=== PATIENT | female | born 1950 | race Caucasian/White ===

== ENCOUNTER 2021-11-13 16:04 | Outpatient (CLI) | payer MEDICARE, OTHER ==
[2021-11-13 16:27] LABS: BASOPHILS # (AUTO) 0.1 10^3/uL (0.0-0.1); BASOPHILS % (AUTO) 0.9 %; EOSINOPHILS # (AUTO) 0.5 10^3/uL (0.0-0.7); HCT - HEMATOCRIT 38.2 % (37.0-47.0); HGB - HEMOGLOBIN 12.4 g/dL (12.0-16.0); LYMPHOCYTES # (AUTO) 2.3 10^3/uL (1.5-3.5); LYMPHOCYTES % (AUTO) 22.6 %; MEAN CORPUSCULAR HEMOGLOBIN 27.6 pg (27.0-31.0); MEAN CORPUSCULAR HGB CONC 32.5 g/dL (32.0-36.0); MEAN CORPUSCULAR VOLUME 85.1 fL (81.0-99.0); MEAN PLATELET VOLUME 10.4 fL (7.9-10.8); MONOCYTES # (AUTO) 1.2 10^3/uL (0.0-1.0); MONOCYTES % (AUTO) 11.9 %; NEUTROPHILS % (AUTO) 59.2 %; PLT - PLATELET COUNT 328 10^3/uL (130-450); RED BLOOD COUNT 4.49 10^6/uL (4.20-5.40); RED CELL DISTRIBUTION WIDTH 15.4 % (12.0-15.0); WHITE BLOOD COUNT 10.1 x10^3/uL (4.8-10.8)
== END 2021-11-13 16:05 | disposition home or self-care (01) ==
LOC: LAB 16:04
PROVIDERS: ATTEND Internal Medicine Infectious Disease
DX: Z87.39 Personal history of other diseases of the musculoskeletal system and connective tissue (principal)
CPT/HCPCS: 36415; 85025; 87040

== ENCOUNTER 2022-05-10 08:00 | Outpatient (CLI) | payer MEDICARE, OTHER | END 2022-05-10 23:59 | disposition home or self-care (01) | LOC: LAB.N 08:00 | DX: S81.802A Unspecified open wound, left lower leg, initial encounter (principal) | CPT/HCPCS: 87070; 87077; 87181; 87205 ==

== ENCOUNTER 2023-01-11 07:30 | Outpatient (CLI) | payer MEDICARE, MEDICAID ==
--- NOTE | 2023-01-11 15:57 | XRAY Report ---
PROCEDURE: Foot 3 View LT INDICATIONS: WOUND INFECTION TECHNIQUE: 3 views of the foot were acquired. COMPARISON: None. FINDINGS: Bones: There is dislocation at the second, third and fourth PIP joints. There is no discretely visua lized fracture. Diffuse IP degenerative narrowing is present. Midfoot arthritic changes are present. No suspicious bony lesions. Calcaneal spur is present. Soft tissues: No suspicious soft tissue calcifications or masses. Plantar soft tissue wound is pre sent. IMPRESSION: Arthritic changes as well as dislocations appearing chronic. Plantar soft tissue wound. No associated osseous abnormality. Reviewed by: Debbie Bustamante MD on 01/11/2023 3:56 PM PDT Approved by: Debbie Bustamante MD on 01/11/2023 3:56 PM PDT Station ID: [id number]
== END 2023-01-11 07:45 | disposition home or self-care (01) ==
LOC: DI.N 07:30
PROVIDERS: ATTEND Specialist
DX: L08.9 Local infection of the skin and subcutaneous tissue, unspecified (principal); M19.072 Primary osteoarthritis, left ankle and foot; M24.875 Other specific joint derangements left foot, not elsewhere classified
CPT/HCPCS: 87070; 87205

== ENCOUNTER 2023-01-11 07:45 | Outpatient (CLI) | payer MEDICARE | END 2023-01-11 08:00 | disposition home or self-care (01) | LOC: LAB.N 07:45 | PROVIDERS: ATTEND Specialist | DX: L08.9 Local infection of the skin and subcutaneous tissue, unspecified (principal) | CPT/HCPCS: 87070; 87205 ==

== ENCOUNTER 2023-06-23 13:02 | Emergency (ER) | payer MEDICARE, OTHER ==
[2023-06-23] MEDS ORDERED: SODIUM CHLORIDE 0.9% 1,000 ML IV STA (13:27)
[2023-06-23] MEDS ORDERED: HYDROmorphone 1 MG/ML CARPUJECT IVP STA (13:27)
--- NOTE | 2023-06-23 13:39 | ED Physician Documentation ---
PD HPI BACK PAIN - Stated complaint Stated Complaint: LOWER BACK PX - Chief complaint Chief Complaint: Back Pain - History obtained from History obtained from: Patient - Additional information Additional information: 72-year-old woman with history of rheumatoid arthritis and gout presents to the evaluation of low back pain. 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 She feels shaky and weak. She has urinary frequency without dysuria or incontinence. No fevers but has had chills. PD PAST MEDICAL HISTORY - Past Medical History Past Medical History: Yes - Past Surgical History Past Surgical History: No - Present Medications Home Medications: Ambulatory Orders Medication Instructions Recorded Confirmed EPINEPHrine [Epinephrine] 0.3 mg IJ ONCE PRN #1 dis.syr 02/08/22 06/23/23 Abatacept [Orencia Clickject] 125 mg SQ .Q7DAY 06/23/23 06/23/23 Calcium Carbonate/Vitamin D3 1 each PO DAILY 06/23/23 06/23/23 [Calcium 600 mg-D3 20 Mcg Cplt] Cholecalciferol [Vitamin D3] 1 tab PO DAILY 06/23/23 06/23/23 Gabapentin [Neurontin] 200 mg PO TID 06/23/23 06/23/23 Hydroxychloroquine [Plaquenil] 200 mg PO BID 06/23/23 06/23/23 Leflunomide [Arava] 20 mg PO DAILY 06/23/23 06/23/23 Metoprolol Succinate [Kapspargo 25 mg PO BID 06/23/23 06/23/23 Sprinkle] Oxycodone HCl/Acetaminophen 1 - 2 each PO Q6H PRN #14 tablet 06/23/23 [Percocet 5-325 mg Tablet] Prednisone [Deb] 10 mg PO DAILY 06/23/23 06/23/23 allopurinoL [Zyloprim] 100 mg PO DAILY 06/23/23 06/23/23 amLODIPine [Norvasc] 5 mg PO DAILY 06/23/23 06/23/23 - Allergies Allergies/Adverse Reactions: Allergies Allergy/AdvReac Type Severity Reaction Status Date / Time lisinopril Allergy Anaphylaxis Verified 06/23/23 13:05 - Social History Does the pt smoke?: No Smoking Status: Never smoker Does the pt drink ETOH?: No Does the pt have substance abuse?: No - Immunizations Immunizations are current?: Yes - POLST Patient has POLST: No PD ED PE NORMAL - Vitals Vital signs reviewed: Yes - General General: Alert and oriented X 3, No acute distress - Abdomen Abdomen: Soft, Non tender - Back Back: Other (Tender to the lower lumbar spine without skin changes or signs of shingles.) - Extremities Extremities: Other (She has a right BKA, sensation throughout the lower extremities is intact and she has normal strength in the left lower extremity.) - Neuro Neuro: Alert and oriented X 3, Normal speech Results - Vitals Vitals: Vital Signs - 24 hr 06/23/23 06/23/23 13:05 16:24 Temperature 36.5 C Heart Rate 117 H 101 H Respiratory 16 16 Rate Blood Pressure 167/81 H 151/80 H O2 Saturation 98 97 Oxygen O2 Source Room air - Labs Labs: Laboratory Tests 06/23/23 06/23/23 06/23/23 13:41 13:41 13:41 WBC 12.4 H RBC 5.11 Hgb 12.7 Hct 41.8 MCV 81.8 MCH 24.9 L MCHC 30.4 L RDW 16.7 H Plt Count 403 MPV 9.8 Neut # (Auto) 9.5 H Lymph # (Auto) 1.7 Coles # (Auto) 0.8 Eos # (Auto) 0.2 Baso # (Auto) 0.1 Absolute Nucleated RBC 0.00 Nucleated RBC % 0.0 Sodium 141 Potassium 3.3 L Chloride 105 Carbon Dioxide 26 Anion Gap 10.0 BUN 10 Creatinine 0.6 Estimated GFR (MDRD) 98 Glucose 121 H Lactic Acid 1.6 Calcium 9.8 Total Bilirubin 0.3 AST 11 ALT 7 L Alkaline Phosphatase 95 Total Protein 6.2 L Albumin 3.9 Globulin 2.3 Albumin/Globulin Ratio 1.7 PD Medical Decision Making - ED course ED course: 72-year-old woman with rheumatoid arthritis presents with about 4 days of low back pain. No clear infectious symptoms and no abnormalities on neurologic exam. Nothing in the history or physical to suggest cauda equina. She did have a white count of 12.4 and given her immunocompromise status I initially wanted to get an MRI of her lumbar spine. Unfortunately given that today is this was not available. A CT of the lumbar spine was done with and without contrast showing significant areas of degenerative disease and anterolisthesis and spinal stenosis associated with a disc herniation. She was feeling modestly better after medications. I discussed with her that infection is not completely ruled out and discussed options for MRI including transfer, admission, or returning tomorrow and she plans to return tomorrow if she is not feeling much better. Advised to return sooner if she develops worsening symptoms or fever. Departure - Departure Disposition: 01 Home, Self Care Clinical Impression: Sciatica Condition: Good Record reviewed to determine appropriate education?: Yes Instructions: ED Sciatica Prescriptions: Oxycodone HCl/Acetaminophen [Percocet 5-325 mg Tablet] 1 - 2 each PO Q6H PRN #14 tablet PRN Reason: pain Comments: I sent your prescription electronically to [facility] in [place]. As discussed there is no clear indication of anything infectious on the CT and there are multiple abnormal areas on the CT that would cause pain. If you were to run a fever or worsen or develop weakness in the legs or numbness around your groin please return immediately for reevaluation. I am prescribing a short course of narcotic pain medication for you. These are potentially dangerous and addictive medications that should be used carefully. These medications may constipate you. Take an wxfy-elh-uogzjry stool softener (docusate) twice daily with plenty of water while taking these medications. If you go 24 hours without a bowel movement, take wxcx-pkv-zgjrbry miralax, per package instructions. Do not drink or drive while taking these medications. If you received narcotic or sedating medications while in the emergency department, do not drive for 24 hours. Store this medication in a safe, secure place and out of reach of children. It is a violation of federal law to give or sell this medication to another person or to use in a manner other than prescribed. The ED will not refill narcotic prescriptions, including prescriptions lost or stolen. To dispose of unwanted medications: 1. [facility] provides a drop box for medication in pill form only (no liquids) 8:00 am to 4:30 p.m. Tuesday-Tuesday in the lobby of the [facility], [address] Empty pills into ziplock bag before disposal. Call [phone] for information. 2.[employer] is a free service available to all [facility] residents. Go to [email or web address] Note that many narcotic pain relievers also contain Tylenol/acetaminophen. Please ensure that your total dose of acetaminophen from all sources does not exceed 3 g (3000 mg) per day. Discharge Date/Time: 06/23/23 16:26
[2023-06-23 13:47] LABS: BASOPHILS # (AUTO) 0.1 10^3/uL (0.0-0.1); BASOPHILS % (AUTO) 0.9 %; EOSINOPHILS # (AUTO) 0.2 10^3/uL (0.0-0.7); EOSINOPHILS % (AUTO) 1.9 %; HCT - HEMATOCRIT 41.8 % (37.0-47.0); HGB - HEMOGLOBIN 12.7 g/dL (12.0-16.0); LYMPHOCYTES # (AUTO) 1.7 10^3/uL (1.5-3.5); LYMPHOCYTES % (AUTO) 13.7 %; MEAN CORPUSCULAR HEMOGLOBIN 24.9 pg (27.0-31.0); MEAN CORPUSCULAR HGB CONC 30.4 g/dL (32.0-36.0); MEAN CORPUSCULAR VOLUME 81.8 fL (81.0-99.0); MEAN PLATELET VOLUME 9.8 fL (7.9-10.8); MONOCYTES # (AUTO) 0.8 10^3/uL (0.0-1.0); MONOCYTES % (AUTO) 6.7 %; NEUTROPHILS # (AUTO) 9.5 10^3/uL (1.5-6.6); NEUTROPHILS % (AUTO) 76.6 %; PLT - PLATELET COUNT 403 10^3/uL (130-450); RED BLOOD COUNT 5.11 10^6/uL (4.20-5.40); RED CELL DISTRIBUTION WIDTH 16.7 % (12.0-15.0); WHITE BLOOD COUNT 12.4 x10^3/uL (4.8-10.8)
[2023-06-23 14:00] LABS: ALBUMIN 3.9 g/dL (3.2-5.5)
[2023-06-23 14:17] LABS: ALBUMIN/GLOBULIN RATIO 1.7 (1.0-2.2); BILIRUBIN,TOTAL 0.3 mg/dL (0.2-1.0); CALCIUM 9.8 mg/dL (8.5-10.3); CREATININE 0.6 mg/dL (0.6-1.3); POTASSIUM 3.3 mmol/L (3.5-4.5); TOTAL PROTEIN 6.2 g/dL (6.4-8.9)
[2023-06-23] MEDS ORDERED: iohexoL-300 100 ML VIAL IVP ONE (15:18)
[2023-06-23] MEDS ORDERED: KETOROLAC 15 MG/ML VIAL IVP STA (15:24)
--- NOTE | 2023-06-23 15:46 | CT Report ---
PROCEDURE: LUMBAR SPINE W/WO INDICATIONS: back pain TECHNIQUE: Axial images were obtained both before and following administration of 100 cc Omnipaque 30 0. Coronal and sagittal images are reformatted. COMPARISON: None. FINDINGS: No acute fractures can be seen. Generalized degenerative changes are seen, with moderate severe disc space narrowing at L2-L3 and L4- L5, with moderate disc space narrowing at L3-L4 and at L5-S1. At L2-L3, there is grade 1 anterolisthesis seen, without associated pars defects. Calcification and v acuum phenomenon can be seen posterior to the L2 disc. There is at least moderate right-sided and mil d left-sided neuroforaminal narrowing at L2-L3. There is moderate to severe central canal narrowing a t L2-L3. At L3-L4, there is a prominent disc extrusion seen within the central/right location, with superior m igration of disc material, as on series 5 image 61. There is moderate to severe central canal narrowi ng seen at this level. Moderate to severe bilateral neuroforaminal narrowing can be seen at this leve l. At L4-L5, there is moderate generalized disc bulge, with a central disc osteophyte protrusion. Modera te facet hypertrophy is seen at this level, with at least moderate bilateral neuroforaminal narrowing , left worse than right. Moderate to severe central canal narrowing is seen. L5-S1, there is at least moderate disc bulge seen. At least moderate bilateral neuroforaminal narrowi ng is seen. Mild central canal narrowing is seen. Within the surrounding soft tissues, there is prominent atherosclerotic change seen. Simple appearing nonenhancing cysts can be seen at the inferior pole of the left kidney. Diverticulosis can be seen, without duke findings of active diverticulitis. IMPRESSION: Multiple levels of significant lumbar spine degenerative change can be seen, including an L3-L4 disc extrusion, with moderate to severe central canal narrowing. L2-L3, grade 1 anterolisthesis is seen, without pars defects. Calcification with vacuum phenomenon ca n be seen posterior to the L2 vertebral body. If it would be helpful for clinical management decision making, please consider a dedicated, schedule d lumbar MRI for further evaluation (assuming that there is no contraindication). Additional findings: Prominent atherosclerotic calcification Left renal cysts Reviewed by: Geovanny Hull MD on 06/23/2023 2:45 PM [place] Approved by: Geovanny Hull MD on 06/23/2023 2:45 PM [facility] Station ID: [id number]
[2023-06-23] MEDS ORDERED: oxyCODONE/ACET 5/325 Prepack 4 PO STA (16:14)
[2023-06-23 16:31] VITALS: BP 151/80; O2SAT 97
== END 2023-06-23 16:26 | disposition home or self-care (01) ==
LOC: ED 13:02
DX: M54.41 Lumbago with sciatica, right side (principal); Z79.899 Other long term (current) drug therapy
CPT/HCPCS: 36415; 72133; 80053; 83605; 85025; 96374; 96375; 99284; J1170; Q9967

== ENCOUNTER 2023-06-24 10:04 | Emergency (ER) | payer MEDICARE, OTHER ==
[2023-06-24] MEDS ORDERED: GADOTERATE MEGLUMINE 10 MMOL/20 ML VIAL ONE (11:44)
--- NOTE | 2023-06-24 12:12 | ED Physician Documentation ---
PD HPI BACK PAIN - Stated complaint Stated Complaint: BACK/RT SIDE PX - Chief complaint Chief Complaint: Back Pain - History obtained from History obtained from: Patient - Additional information Additional information: 72-year-old woman with RA on immunosuppression that I saw yesterday for few days worth of back pain radiating into the right leg. She had a white count but no fever and was advised to return today for MRI as that was not available yesterday. PD PAST MEDICAL HISTORY - Past Medical History Past Medical History: Yes Other Past Medical History: left sided breast cancer - Past Surgical History Past Surgical History: Yes Ortho: Amputation, Other - Present Medications Home Medications: Ambulatory Orders Medication Instructions Recorded Confirmed EPINEPHrine [Epinephrine] 0.3 mg IJ ONCE PRN #1 dis.syr 02/08/22 06/23/23 Abatacept [Orencia Clickject] 125 mg SQ .Q7DAY 06/23/23 06/23/23 Calcium Carbonate/Vitamin D3 1 each PO DAILY 06/23/23 06/23/23 [Calcium 600 mg-D3 20 Mcg Cplt] Cholecalciferol [Vitamin D3] 1 tab PO DAILY 06/23/23 06/23/23 Gabapentin [Neurontin] 200 mg PO TID 06/23/23 06/23/23 Hydroxychloroquine [Plaquenil] 200 mg PO BID 06/23/23 06/23/23 Leflunomide [Arava] 20 mg PO DAILY 06/23/23 06/23/23 Metoprolol Succinate [Kapspargo 25 mg PO BID 06/23/23 06/23/23 Sprinkle] Oxycodone HCl/Acetaminophen 1 - 2 each PO Q6H PRN #14 tablet 06/23/23 [Percocet 5-325 mg Tablet] Prednisone [Deb] 10 mg PO DAILY 06/23/23 06/23/23 allopurinoL [Zyloprim] 100 mg PO DAILY 06/23/23 06/23/23 amLODIPine [Norvasc] 5 mg PO DAILY 06/23/23 06/23/23 - Allergies Allergies/Adverse Reactions: Allergies Allergy/AdvReac Type Severity Reaction Status Date / Time lisinopril Allergy Anaphylaxis Verified 06/23/23 13:05 - Social History Does the pt smoke?: No Smoking Status: Never smoker Does the pt drink ETOH?: No Does the pt have substance abuse?: No - Immunizations Immunizations are current?: Yes - POLST Patient has POLST: No PD ED PE NORMAL - Vitals Vital signs reviewed: Yes - General General: Alert and oriented X 3, No acute distress - Neuro Neuro: Alert and oriented X 3, Normal speech - Psych Psych: Normal mood, Normal affect Results - Vitals Vitals: Vital Signs - 24 hr 06/24/23 10:08 Temperature 36.8 C Heart Rate 99 Respiratory 16 Rate Blood Pressure 163/88 H O2 Saturation 97 Oxygen O2 Source Room air - Rads (name of study) MRI of the lumbar spine Relevant Findings:: Final report received, EMP independent interpretation of test PD Medical Decision Making - ED course ED course: She was brought back today for concern of spinal infection given the elevated white count yesterday and back pain and immune compromise. An MRI of the spine with and without contrast was done and there was thankfully no evidence of an infectious process. She does have severe stenosis at L2-L3 and L3-L4 due to d isc herniations and spine surgery consult was recommended. Departure - Departure Disposition: 01 Home, Self Care Clinical Impression: Spinal stenosis Condition: Good Record reviewed to determine appropriate education?: Yes Instructions: ED Sciatica Comments: As discussed, thankfully there is no evidence of infection on the MRI which is what I was worried about. You do have pretty severe spinal stenosis at 2 levels and it would be worthwhile for you to seek the care of a spine surgeon. You can talk with your primary or your underwriting assistant about that. Return for new or worsening symptoms.
[2023-06-24] MEDS ORDERED: GADOTERATE MEGLUMINE 10 MMOL/20 ML VIAL IVP ONE (12:17)
--- NOTE | 2023-06-24 13:17 | MRI Report ---
PROCEDURE: LUMBAR SPINE W/WO INDICATIONS: back pain, immunecompromise CONTRAST: CLARISCAN 11ML TECHNIQUE: Noncontrast sagittal T1 spin echo and T2 fast spin echo, sagittal STIR, axial T1 and T2 fast spin ech o through the lumbar spine. In cases with scoliosis, additional coronal T2 fast spin echo may be per formed. After the administration of contrast, sagittal and axial T1 spin echo with fat saturation th rough the lumbar spine. COMPARISON: None. FINDINGS: Image quality: Excellent. Alignment and curvature: There is 6 mm of anterolisthesis of L2 on L3 and 5 mm of anterolisthesis of L3 on L4. Marrow: Marrow is of normal overall signal. No acute vertebral body compression fractures. No susp icious marrow enhancement. Spinal cord: Conus medullaris terminates at the L1 level. Visualized spinal cord demonstrates kd l signal, without suspicious enhancement. Paraspinous soft tissues: No paravertebral masses or abnormal enhancement. T12-L1: Normal in appearance. L1-L2: Normal in appearance. L2-L3: Superior relatively broad-based left paracentral disc extrusion behind the L2 vertebral body. Extruded disc material measures approximately 1.5 x 2.3 x 1.0 cm. This impinges on the left L2 nerve root as it enters the foramen. Anterolisthesis of L2 on L3 measuring 6 mm. Prominent bilateral facet and ligament hypertrophy. Severe canal stenosis. Moderate bilateral foraminal narrowing with flatten ing deformity on the exiting bilateral L2 nerve roots. L3-L4: 5 mm of anterolisthesis of L3 and L4 with diffuse posterior disc protrusion and facet and lig ament hypertrophy resulting in severe canal stenosis at the level of the disc. There is an associated superiorly located free disc fragment, which is large, in the right lateral recess behind L3, which measures 1.3 x 1.7 x 1.1 cm. It obliterates the right L3 nerve root in the right lateral recess and e xerts significant mass effect on additional right-sided nerve roots in the thecal sac. There is mild bilateral foraminal narrowing. L4-L5: Severe disc height loss. Diffuse disc bulge. Facet and ligament hypertrophy. Moderate to sev ere canal stenosis. Mild right foraminal narrowing and mild to moderate left foraminal narrowing. L5-S1: Facet hypertrophy. Minimal disc bulge. No central canal stenosis. Mild to moderate right for aminal narrowing. Moderate left foraminal narrowing. IMPRESSION: 1. There is underlying multilevel facet arthropathy, prominent at L2-L3 and L3-L4, with resultant gra de 1 anterolisthesis at L2-L3 and L3-L4. 2. At L2-L3 there is severe canal stenosis at the disc level. Additionally, there is a superior disc extrusion behind L2 which results in a degree of canal stenosis above the disc space level. There is a degree of left L2 nerve root impingement as it enters the foramen. 3. At L3-L4, there is severe canal stenosis at the disc level, and part secondary to broad-based post erior disc protrusion. Additionally, there is a large superior extruded disc fragment in the right la teral recess, which obliterates the right L3 nerve root in the right lateral recess and also exerts s ignificant mass effect on right-sided nerve roots in the thecal sac. 4. There is moderate to severe canal stenosis at L4-L5. 5. L2 level foraminal narrowing as described above. Reviewed by: Sunny Lopez MD on 06/24/2023 1:16 PM PST Approved by: Sunny Lopez MD on 06/24/2023 1:16 PM PST Station ID: [id number]
[2023-06-24 13:44] VITALS: BP 150/80; O2SAT 98
== END 2023-06-24 13:42 | disposition home or self-care (01) ==
LOC: ED 10:04
DX: M48.061 Spinal stenosis, lumbar region without neurogenic claudication (principal)
CPT/HCPCS: 72158; 99282; 99284; A9575

== ENCOUNTER 2023-08-03 08:49 | Emergency (ER) | payer MEDICARE, OTHER ==
[2023-08-03 09:09] VITALS: BP 145/73; O2SAT 99
--- NOTE | 2023-08-03 09:34 | XRAY Report ---
PROCEDURE: Shoulder 2+V RT INDICATIONS: pain TECHNIQUE: 3 views of the shoulder were acquired. COMPARISON: None. FINDINGS: Bones: No fractures or dislocations. No suspicious bony lesions. Visualized ribs appear intact. Periarticular osteophyte formation at the acromioclavicular and glenohumeral joints. Soft tissues: No suspicious soft tissue calcifications. The visualized lungs are within normal limi ts. IMPRESSION: Osteoarthritis. No acute fracture. No osseous lesion. If symptoms and/or clinical suspicion for patho logy continue, further assessment with repeat plain films, or advanced imaging (e.g., CT, MRI, or bon e scan) is recommended for further assessment. Reviewed by: Bernard Garza MD on 08/03/2023 9:33 AM [facility] Approved by: Bernard Garza MD on 08/03/2023 9:33 AM [facility] Station ID: [id number]
--- NOTE | 2023-08-03 11:11 | ED Physician Documentation ---
PD HPI UPPER EXT INJURY - Stated complaint Stated Complaint: ARM PX - Chief complaint Chief Complaint: Ext Problem - History obtained from History obtained from: Patient - Additonal information Additional information: 72-year-old woman with severe RA has had trouble shoulder pain for the last 6 weeks. There is no specific injury. She is already seen orthopedics and is going back again in 2 weeks for consideration for further workup on this. She wonders if she could have an MRI today. PD PAST MEDICAL HISTORY - Past Surgical History Past Surgical History: Yes Ortho: Amputation, Other - Present Medications Home Medications: Ambulatory Orders Medication Instructions Recorded Confirmed EPINEPHrine [Epinephrine] 0.3 mg IJ ONCE PRN #1 dis.syr 02/08/22 06/23/23 Abatacept [Orencia Clickject] 125 mg SQ .Q7DAY 06/23/23 06/23/23 Calcium Carbonate/Vitamin D3 1 each PO DAILY 06/23/23 06/23/23 [Calcium 600 mg-D3 20 Mcg Cplt] Cholecalciferol [Vitamin D3] 1 tab PO DAILY 06/23/23 06/23/23 Gabapentin [Neurontin] 200 mg PO TID 06/23/23 06/23/23 Hydroxychloroquine [Plaquenil] 200 mg PO BID 06/23/23 06/23/23 Leflunomide [Arava] 20 mg PO DAILY 06/23/23 06/23/23 Metoprolol Succinate [Kapspargo 25 mg PO BID 06/23/23 06/23/23 Sprinkle] Oxycodone HCl/Acetaminophen 1 - 2 each PO Q6H PRN #14 tablet 06/23/23 [Percocet 5-325 mg Tablet] Prednisone [Deb] 10 mg PO DAILY 06/23/23 06/23/23 allopurinoL [Zyloprim] 100 mg PO DAILY 06/23/23 06/23/23 amLODIPine [Norvasc] 5 mg PO DAILY 06/23/23 06/23/23 Gabapentin [Neurontin] 2 tab PO TID #90 cap 08/03/23 oxyCODONE [Roxicodone] 2 tab PO Q4-6H PRN #30 tablet 08/03/23 - Allergies Allergies/Adverse Reactions: Allergies Allergy/AdvReac Type Severity Reaction Status Date / Time lisinopril Allergy Anaphylaxis Verified 08/03/23 09:08 - Social History Does the pt smoke?: No Smoking Status: Never smoker Does the pt drink ETOH?: No Does the pt have substance abuse?: No - Immunizations Immunizations are current?: Yes - POLST Patient has POLST: No PD ED PE NORMAL - Vitals Vital signs reviewed: Yes - General General: Alert and oriented X 3, No acute distress - HEENT HEENT: PERRL, EOMI - Neck Neck: Supple, no meningeal sign, No bony TTP - Extremities Extremities: Other (She is unable to abduct the right shoulder past about 45 degrees but does better passively. Internal and external rotation of the is quite painful. Normal pulses in the wrists and neurovascular function in the hands.) - Neuro Neuro: Alert and oriented X 3, Normal speech Results - Vitals Vitals: Vital Signs - 24 hr 08/03/23 09:04 Temperature 36.1 C L Heart Rate 106 H Respiratory 20 Rate Blood Pressure 145/73 H O2 Saturation 99 Oxygen O2 Source Room air - Rads (name of study) Three-view x-ray right shoulder showing arthritis with no trauma Relevant Findings:: Final report received, EMP independent interpretation of test PD Medical Decision Making - ED course ED course: She is here for pain control and wanting an MRI. I discussed with her that there is no emergency indication for MRI imaging and she could follow-up with her orthopedist for that. Departure - Departure Disposition: Home, Self Care Clinical Impression: Shoulder arthritis Condition: Good Record reviewed to determine appropriate education?: Yes Instructions: ED Arthritis Rheumatoid Prescriptions: Gabapentin [Neurontin] 2 tab PO TID #90 cap oxyCODONE [Roxicodone] 2 tab PO Q4-6H PRN #30 tablet PRN Reason: Pain Comments: I sent her prescriptions electronically to the [facility] in [place]. As discussed there is no indication for emergency MRI imaging, please follow-up with your orthopedist as scheduled. In the meantime I am increasing your oxycodone and gabapentin. I am prescribing a short course of narcotic pain medication for you. These are potentially dangerous and addictive medications that should be used carefully. These medications may constipate you. Take an zosa-axw-hcbmeeo stool softener (docusate) twice daily with plenty of water while taking these medications. If you go 24 hours without a bowel movement, take ofxj-fbe-iluuaav miralax, per package instructions. Do not drink or drive while taking these medications. If you received narcotic or sedating medications while in the emergency department, do not drive for 24 hours. Store this medication in a safe, secure place and out of reach of children. It is a violation of federal law to give or sell this medication to another person or to use in a manner other than prescribed. The ED will not refill narcotic prescriptions, including prescriptions lost or stolen. To dispose of unwanted medications: 1. [facility] provides a drop box for medication in pill form only (no liquids) 8:00 am to 4:30 p.m. Tuesday-Tuesday in the lobby of the [facility] [place], [address] [place] [address]. Empty pills into ziplock bag before disposal. Call [phone] for information. 2.[employer] is a free service available to all [facility] residents. Go to [email or web address] Note that many narcotic pain relievers also contain Tylenol/acetaminophen. Please ensure that your total dose of acetaminophen from all sources does not exceed 3 g (3000 mg) per day.
== END 2023-08-03 11:42 | disposition home or self-care (01) ==
LOC: ED 08:49
DX: M19.011 Primary osteoarthritis, right shoulder (principal)
CPT/HCPCS: 99283; 99284

== ENCOUNTER 2023-08-26 17:17 | Emergency (ER) | payer MEDICARE, OTHER ==
[2023-08-26] MEDS ORDERED: HYDROmorphone 1 MG/ML CARPUJECT IVP STA (17:52)
--- NOTE | 2023-08-26 17:53 | ED Physician Documentation ---
PD HPI UPPER EXT INJURY - Stated complaint Stated Complaint: R SHOULDER PX - Chief complaint Chief Complaint: Ext Problem - History obtained from History obtained from: Patient, Family - Additonal information Additional information: She is been having problems with her right shoulder and actually had an MRI about a week ago, but a few days ago fell and then subsequently had an outpatient x-ray at another facility today and was called subsequently and told that she had an anterior dislocation. PD PAST MEDICAL HISTORY - Past Medical History Past Medical History: Yes Cardiovascular: Hypertension Musculoskeletal: Osteoarthritis Other Past Medical History: breast cancer. right BKA - Past Surgical History Past Surgical History: Yes Ortho: Amputation, Other - Present Medications Home Medications: Ambulatory Orders Medication Instructions Recorded Confirmed EPINEPHrine [Epinephrine] 0.3 mg IJ ONCE PRN #1 dis.syr 02/08/22 06/23/23 Abatacept [Orencia Clickject] 125 mg SQ .Q7DAY 06/23/23 06/23/23 Calcium Carbonate/Vitamin D3 1 each PO DAILY 06/23/23 06/23/23 [Calcium 600 mg-D3 20 Mcg Cplt] Cholecalciferol [Vitamin D3] 1 tab PO DAILY 06/23/23 06/23/23 Gabapentin [Neurontin] 200 mg PO TID 06/23/23 06/23/23 Hydroxychloroquine [Plaquenil] 200 mg PO BID 06/23/23 06/23/23 Leflunomide [Arava] 20 mg PO DAILY 06/23/23 06/23/23 Metoprolol Succinate [Kapspargo 25 mg PO BID 06/23/23 06/23/23 Sprinkle] Oxycodone HCl/Acetaminophen 1 - 2 each PO Q6H PRN #14 tablet 06/23/23 [Percocet 5-325 mg Tablet] Prednisone [Deb] 10 mg PO DAILY 06/23/23 06/23/23 allopurinoL [Zyloprim] 100 mg PO DAILY 06/23/23 06/23/23 amLODIPine [Norvasc] 5 mg PO DAILY 06/23/23 06/23/23 Gabapentin [Neurontin] 2 tab PO TID #90 cap 08/03/23 oxyCODONE [Roxicodone] 2 tab PO Q4-6H PRN #30 tablet 08/03/23 - Allergies Allergies/Adverse Reactions: Allergies Allergy/AdvReac Type Severity Reaction Status Date / Time lisinopril Allergy Anaphylaxis Verified 08/26/23 17:47 - Social History Does the pt smoke?: No Smoking Status: Never smoker Does the pt drink ETOH?: No Does the pt have substance abuse?: No - Immunizations Immunizations are current?: Yes - POLST Patient has POLST: No PD ED PE NORMAL - Vitals Vital signs reviewed: Yes - General General: Alert and oriented X 3, No acute distress - Back Back: No CVA TTP, No spinal TTP - Derm Derm: Normal color, Warm and dry - Extremities Extremities: Other (There is deformity and fullness to the right shoulder potent ially consistent with a dislocation with bruising over it. She cannot range it at all.) - Neuro Neuro: Alert and oriented X 3 Results - Vitals Vitals: Vital Signs - 24 hr 08/26/23 08/26/23 17:34 19:22 Temperature 36.7 C Heart Rate 101 H 68 Respiratory 17 17 Rate Blood Pressure 146/76 H O2 Saturation 96 94 Oxygen O2 Source Room air - Rads (name of study) R shoulder XR Relevant Findings:: Final report received, Discussed with rads, EMP independent interpretation of test PD Medical Decision Making - ED course ED course: 72-year-old woman presents with out specific shoulder injury, but had an x-ray earlier today that was suggestive of a anterior dislocation. She had a fall in the interim, but did not injure the shoulder per se. Initially here the x-ray was not consistent with dislocation but with suboptimal views and this was discussed with our radiologist who wanted similar views and after those were done she was confident there was no dislocation. Departure - Departure Disposition: 01 Home, Self Care Clinical Impression: Shoulder subluxation, right Qualifiers: Encounter type: initial encounter Qualified Code(s): S43.001A - Unspecified subluxation of right shoulder joint, initial encounter Condition: Good Record reviewed to determine appropriate education?: Yes Instructions: ED Tendinitis Rotator Cuff Comments: Our radiologist is confident after obtaining further views that there is no dislocation of your right shoulder joint. There is a subluxation, where there is extra space between the ball and the cup of the joint, but this is not unexpected based on your history and prior MRI. Follow-up with your orthopedist as scheduled. Return for new or worsening symptoms. Forms: PCP List
--- NOTE | 2023-08-26 18:19 | XRAY Report ---
PROCEDURE: Shoulder 2+V RT INDICATIONS: shoulder inj, ?dislocation TECHNIQUE: 3 views of the shoulder were acquired. COMPARISON: None. FINDINGS: Bones: No fractures or dislocations. No suspicious bony lesions. Visualized ribs appear intact. Soft tissues: No suspicious soft tissue calcifications. The visualized lungs are within normal limi ts. IMPRESSION: No visualized acute fracture or dislocation. However, occult injury cannot be excluded. Recommend pedro rt interval imaging follow-up in 7-10 days as clinically indicated for additional evaluation. Reviewed by: Debbie Bustamante MD on 08/26/2023 6:17 PM PST Approved by: Debbie Bustamante MD on 08/26/2023 6:17 PM PST Station ID: [id number]
[2023-08-26 20:17] VITALS: BP 161/82; O2SAT 98
== END 2023-08-26 20:13 | disposition home or self-care (01) ==
LOC: ED 17:17
DX: S43.001A Unspecified subluxation of right shoulder joint, initial encounter (principal); X58.XXXA Exposure to other specified factors, initial encounter; I10 Essential (primary) hypertension
CPT/HCPCS: 73030; 96374; 99283; J1170